=== PATIENT | male | born 1980 | race Caucasian/White ===

== ENCOUNTER 2020-11-01 09:18 | Emergency (ER) | payer MEDICAID, OTHER ==
[~2020-11-01] VITALS: Ht 170.2 cm; Wt 61.2 kg
[2020-11-01 09:37] VITALS: BP 149/97
[2020-11-01] MEDS ORDERED: KETOROLAC TROMETH 60MG/2ML VIAL IM ONE (09:45)
[2020-11-01] MEDS ORDERED: cefTRIAXone SOD 1,000 MG VL IM ONE (09:45)
[2020-11-01] MEDS ORDERED: LIDOCAINE 1% HCL (LOCAL ANESTH.) INJ 20ML MDV ONE (09:46)
== END 2020-11-01 09:56 | disposition home or self-care (01) ==
LOC: ER 09:18
DX: K04.7 Periapical abscess without sinus (principal); F17.210 Nicotine dependence, cigarettes, uncomplicated
CPT/HCPCS: 96372; 99284; J0696; J1885; J2001